=== PATIENT | female | born 1960 | race Caucasian/White ===

== ENCOUNTER 2022-09-20 09:17 | Emergency (ER) | payer SELFPAY ==
[~2022-09-20] VITALS: Ht 160 cm; Wt 88.0 kg
[2022-09-20 09:56] VITALS: BP 145/72
== END 2022-09-20 12:14 | disposition left against medical advice (07) ==
LOC: ER 09:17
DX: M54.9 Dorsalgia, unspecified (principal); Z53.21 Procedure and treatment not carried out due to patient leaving prior to being seen by health care provider